=== PATIENT | female | born 1975 | race Caucasian/White ===

== ENCOUNTER 2022-07-21 06:42 | Emergency (ER) | payer OTHER ==
[~2022-07-21] VITALS: Ht 154.9 cm; Wt 85.7 kg
== END 2022-07-21 09:58 | disposition home or self-care (01) ==
LOC: ER 06:42
DX: K64.5 Perianal venous thrombosis (principal); K64.9 Unspecified hemorrhoids

== ENCOUNTER 2023-01-30 06:44 | Emergency (ER) | payer OTHER ==
[~2023-01-30] VITALS: Ht 154.9 cm; Wt 80.7 kg
== END 2023-01-30 11:33 | disposition home or self-care (01) ==
LOC: ER 06:44
PROVIDERS: General Practice
DX: U07.1 COVID-19 (principal)